=== PATIENT | male | born 2000 | race Caucasian/White ===

== ENCOUNTER 2023-07-27 09:34 | Outpatient (CLI) | payer BC | END 2023-07-27 23:59 | disposition home or self-care (01) | LOC: RAD 09:34 | PROVIDERS: ATTEND Family Medicine Sports Medicine | DX: D36.7 Benign neoplasm of other specified sites (principal); D18.1 Lymphangioma, any site; L72.0 Epidermal cyst; M77.9 Enthesopathy, unspecified | CPT/HCPCS: 70490 ==